=== PATIENT | female | born 1975 | race African-American/Black ===

== ENCOUNTER 2021-05-09 17:41 | Emergency (ER) | payer BC, OTHER ==
[2021-05-09 17:49] VITALS: BP 122/78; PULSE 73; TEMP 98; BMI 29.2
== END 2021-05-09 21:43 | disposition home or self-care (01) ==
LOC: JER 17:41
DX: M54.12 Radiculopathy, cervical region (principal)
CPT/HCPCS: 72050-TC-FY; 93005; 93010; 99284-25